=== PATIENT | female | born 1955 | race Caucasian/White ===

== ENCOUNTER 2022-03-21 08:22 | Day surgery (SDC) | payer OTHER ==
[~2022-03-21] VITALS: Ht 149.9 cm; Wt 60.3 kg
[~2022-03-21 08:22] MED LIST: CEFAZOLIN 1 GM IVPB PREMIX 50 ML IV ONE
[2022-03-21] MEDS ORDERED: fentaNYL CITRATE/PF 100 MCG/2 ML AMP IVP ONE ×2 (13:37→15:30)
[2022-03-21] MEDS ORDERED: BUPIVACAINE /PF 0.25% 30 ML VIAL INJ ONE (13:37)
[2022-03-21] MEDS ORDERED: ePHEDrine sulfate 50 MG/ML VIAL IVP ONE (13:37)
[2022-03-21] MEDS ORDERED: SEVOFLURANE 15 MIN GAS INH ONE (13:37)
[2022-03-21] MEDS ORDERED: KETOROLAC TROMETHAMINE 30 MG VIAL IVP ONE (13:37)
[2022-03-21] MEDS ORDERED: PROPOFOL 200MG/ 20ML VIAL (DIPRIVAN) IV ONE (13:37)
[2022-03-21] MEDS ORDERED: NS IRRIG SOLN 1000 ML IR ONE (13:37)
[2022-03-21] MEDS ORDERED: DEXAMETHASONE SOD PHOSPHATE 10 MG/ML VIAL IVP ONE (13:37)
[2022-03-21] MEDS ORDERED: LR 1,000 ML IV.SOLN IV ONE (13:37)
[2022-03-21] MEDS ORDERED: ONDANSETRON HCL 4 MG/2 ML VIAL IVP ONE (13:37)
[2022-03-21] MEDS ORDERED: D5/0.45 NS 1,000 ML IV SCH (15:15)
[2022-03-21] MEDS ORDERED: HYDROcodone/ACETAMIN 5-325 MG TAB (NORCO/ VICODIN) PO PRN ×2 (15:15)
[2022-03-21] MEDS ORDERED: ONDANSETRON HCL 4 MG/2 ML VIAL IVP PRN (15:30)
[2022-03-21] MEDS ORDERED: MEPERIDINE HCL/PF 25 MG/ML DISP.SYRIN IVP PRN (15:30)
[2022-03-21 18:58] VITALS: BP_SYST 121
== END 2022-03-21 18:25 | disposition home or self-care (01) ==
LOC: SDS 08:22 → SMU 08:24 → SDS 18:25
PROVIDERS: ATTEND Colon & Rectal Surgery
DX: N63.20 Unspecified lump in the left breast, unspecified quadrant (principal); F17.210 Nicotine dependence, cigarettes, uncomplicated; Z20.822 Contact with and (suspected) exposure to COVID-19; Z79.899 Other long term (current) drug therapy
CPT/HCPCS: 36415; 87426; 19301; 38525; 38900; 19281; 78195; 88305; 88307; 88329; 88333; 88342; A9541; J3490; J0690; J1100; J1885; J2405; J2704; J3010; J7120